=== PATIENT | male | born 2000 | race Hispanic/Latino ===

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

== ENCOUNTER 2022-03-16 13:09 | Emergency (ER) | payer BC, OTHER ==
[~2022-03-16] VITALS: Ht 182.9 cm; Wt 136.1 kg
[2022-03-16 13:13] VITALS: BP 155/87
[2022-03-16] MEDS ORDERED: CYCLOBENZAPRINE HCL 10 MG TABLET PO ONE (14:00)
[2022-03-16] MEDS ORDERED: IBUPROFEN 600 MG TABLET PO ONE (14:00)
[2022-03-16] MEDS ORDERED: CYCL10TA16 PO (14:02)
[2022-03-16] MEDS ORDERED: NAPR500T6 PO (14:02)
== END 2022-03-16 14:13 | disposition home or self-care (01) ==
LOC: EDH 13:09
DX: S29.012A Strain of muscle and tendon of back wall of thorax, initial encounter (principal); F41.9 Anxiety disorder, unspecified; X58.XXXA Exposure to other specified factors, initial encounter; Y93.89 Activity, other specified; Y92.89 Other specified places as the place of occurrence of the external cause; Y99.8 Other external cause status

== ENCOUNTER 2023-04-29 03:21 | Emergency (ER) | payer OTHER ==
[~2023-04-29] VITALS: Ht 182.9 cm; Wt 122.5 kg
[~2023-04-29 03:21] MED LIST: CYCL10TA16 PO; NAPR500T6 PO
[2023-04-29 03:36] VITALS: BP 136/70; PULSE 82; RESP 16; O2SAT 99
[2023-04-29] MEDS ORDERED: IBUP-2077 PO (04:12)
[2023-04-29] MEDS ORDERED: IBUPROFEN 800 MG TAB PO ONE (04:30)
== END 2023-04-29 04:19 | disposition home or self-care (01) ==
LOC: EDH 04:08
DX: S50.11XA Contusion of right forearm, initial encounter (principal); Z79.899 Other long term (current) drug therapy; Z90.89 Acquired absence of other organs; X58.XXXA Exposure to other specified factors, initial encounter; Y93.89 Activity, other specified; Y92.89 Other specified places as the place of occurrence of the external cause; Y99.8 Other external cause status
CPT/HCPCS: 73090; 73100